=== PATIENT | male | born 1960 | race Caucasian/White ===

== ENCOUNTER 2017-06-08 09:20 | Day surgery (SDC) | payer MEDICAID ==
[~2017-06-08] VITALS: Ht 182.9 cm; Wt 98.0 kg
[~2017-06-08 09:20] MED LIST: GABAPENTIN 400400 MG PO; LISINOPRIL 10MG10 MG PO
[2017-06-08 09:23] VITALS: BP 155/88
[2017-06-08] MEDS ORDERED: PAXIL10 MG PO (09:30)
[2017-06-08] MEDS ORDERED: FLONASE 50 MCG16 GM (09:31)
[2017-06-08 09:43] VITALS: BP 155/88
[2017-06-08 09:44] VITALS: BP 187/94
--- NOTE | 2017-06-08 09:50 | Procedure Note ---
See Addendum Procedure detail Date of procedure: 06/08/17 Anesthesiologist: Toi Salas M.D. Complications: None Pre-procedure diagnosis: Degenerative disc disease of lumbar spine with lumbar radiculopathy symptoms and herniated disc at L5-S1 Post-procedure diagnosis: Same Indications for procedure: This patient is a pleasant 56-year-old white male who we are treating for low back pain with lumbar radiculopathy symptoms. These had previous facet joint injections with minimal relief of his pain symptoms. Most of his pain is in the back. He does have a disc fragment at L5-S1. We will do a lumbar epidural steroid injection at L5-S1 today to see if this will give him some pain relief. Procedure detail: Procedure: Lumbar epidural steroid injection under fluoroscopy Informed consent was obtained and the risks and benefits of the procedure were explained to the patient. The patient was taken to the procedure room and noninvasive monitors placed, including noninvasive blood pressure cuff and pulse oximeter. The back was viewed using C-arm Fluoroscopy and prepped using Betadine as a cleansing solution and the L5-S1 interspace was palpated. Skin and subcutaneous tissues were anesthetized using lidocaine 1.5% and a 25-gauge needle. After this, an 18-gauge Touhy epidural needle was placed into the L5-S1 interspace and advanced using fluoroscopic guidance and loss of resistance to air until the epidural space was encountered. After confirmation of needle placement in the epidural space, with dye, a solution containing lidocaine 1.5%, 4 mL and Depo-Medrol 80 mg were incrementally injected into the lumbar epidural space. The patient tolerated the procedure well with no complications. The patient was observed in the Pain Clinic and then discharged home neurologically intact. Plan and disposition: We'll follow-up with this patient in 2 weeks. We'll reevaluate his symptoms at that time. at [id number]
[2017-06-08 09:58] VITALS: BP 128/79
== END 2017-06-08 09:59 | disposition home or self-care (01) ==
LOC: PM 09:20
PROC: 3E0R3BZ Introduction of Anesthetic Agent into Spinal Canal, Percutaneous Approach (ICD-10-PCS; principal; 2017-06-08)
PROC: 3E0R33Z Introduction of Anti-inflammatory into Spinal Canal, Percutaneous Approach (ICD-10-PCS; 2017-06-08)
PROC: B01B1ZZ Fluoroscopy of Spinal Cord using Low Osmolar Contrast (ICD-10-PCS; 2017-06-08)
DX: M51.16 Intervertebral disc disorders with radiculopathy, lumbar region (principal); M51.26 Other intervertebral disc displacement, lumbar region
CPT/HCPCS: J1040